=== PATIENT | female | born 1970 | race Caucasian/White ===

== ENCOUNTER → 2017-03-26 | Outpatient (CLI) | payer BC | END | disposition home or self-care (01) | LOC: RAH 07:48 | PROVIDERS: ATTEND Obstetrics & Gynecology | DX: N60.01 Solitary cyst of right breast (principal); N60.02 Solitary cyst of left breast; Z80.3 Family history of malignant neoplasm of breast | CPT/HCPCS: 76641; 77066 ==

== ENCOUNTER → 2017-05-27 | Outpatient (CLI) | payer BC | LOC: OIH 10:03 | PROVIDERS: ATTEND Internal Medicine | DX: I11.0 Hypertensive heart disease with heart failure (principal); I50.22 Chronic systolic (congestive) heart failure | CPT/HCPCS: 71046 ==

== ENCOUNTER → 2019-07-23 | Outpatient (CLI) | payer OTHER | END | disposition home or self-care (01) | LOC: RAH 11:21 | PROVIDERS: ATTEND Obstetrics & Gynecology | DX: Z12.31 Encounter for screening mammogram for malignant neoplasm of breast (principal) | CPT/HCPCS: 77067 ==

== ENCOUNTER → 2020-08-31 | Outpatient (CLI) | payer OTHER | END | disposition home or self-care (01) | LOC: RAH 08:07 | PROVIDERS: ATTEND Obstetrics & Gynecology | DX: Z12.31 Encounter for screening mammogram for malignant neoplasm of breast (principal) | CPT/HCPCS: 77067 ==

== ENCOUNTER → 2021-09-06 | Outpatient (CLI) | payer OTHER | END | disposition home or self-care (01) | LOC: RAH 07:43 | PROVIDERS: ATTEND Obstetrics & Gynecology | DX: Z12.31 Encounter for screening mammogram for malignant neoplasm of breast (principal) | CPT/HCPCS: 77067 ==

== ENCOUNTER → 2022-09-28 | Outpatient (CLI) | payer OTHER | END | disposition home or self-care (01) | LOC: RAH 08:42 | PROVIDERS: ATTEND Obstetrics & Gynecology | DX: Z12.31 Encounter for screening mammogram for malignant neoplasm of breast (principal) | CPT/HCPCS: 77067 ==

== ENCOUNTER → 2023-03-15 | Outpatient (CLI) | payer OTHER ==
[~2023-03-15] MED LIST: REGADENOSON 0.4 MG/5 ML PF SYG IVP ONE
== END | disposition home or self-care (01) ==
LOC: SHCH 08:20
PROVIDERS: ATTEND Internal Medicine Cardiovascular Disease
DX: I10 Essential (primary) hypertension (principal)
CPT/HCPCS: 78452; 96374; 93017; J2785; A9500 ×2

== ENCOUNTER → 2023-03-16 | Outpatient (CLI) | payer OTHER | END | disposition home or self-care (01) | LOC: SHCH 10:44 | PROVIDERS: ATTEND Internal Medicine Cardiovascular Disease | DX: I10 Essential (primary) hypertension (principal) | CPT/HCPCS: 93306 ==

== ENCOUNTER → 2023-10-02 | Outpatient (CLI) | payer OTHER | END | disposition home or self-care (01) | LOC: RAH 07:46 | PROVIDERS: ATTEND Family Medicine | DX: Z12.31 Encounter for screening mammogram for malignant neoplasm of breast (principal); R92.333 Mammographic heterogeneous density, bilateral breasts | CPT/HCPCS: 77067 ==

== ENCOUNTER → 2024-02-03 | Outpatient (CLI) | payer OTHER ==
--- NOTE | 2024-02-03 14:04 | HMCIMG ---
CT CORONARY CALCIFICATION SCORING: Anatomic images were reviewed. The calcium score is being generated and reported separately. This report is for the visualized anatomy only. Visualized portions of the lungs are clear. Hilar and mediastinal structures appear normal. Osseous structures are unremarkable. Impression: 1. Negative noncardiac anatomic findings. 2. The calcium score score is 62.6 consistent with a mild degree of calcified plaque. This is just over 90th percentile for this age patient. CT was performed with one or more following dose reduction techniques: automated exposure control, adjustment of the mA and kv according to patient's size, or use of a iterative reconstruction technique.
== END | disposition home or self-care (01) ==
LOC: RAH 12:26
PROVIDERS: ATTEND Internal Medicine Cardiovascular Disease
DX: Z13.6 Encounter for screening for cardiovascular disorders (principal); R07.9 Chest pain, unspecified
CPT/HCPCS: 75571

== ENCOUNTER 2025-02-13 16:16 | Emergency (ER) | payer OTHER ==
[~2025-02-13] VITALS: Ht 170.2 cm; Wt 135.2 kg
[2025-02-13 16:17] VITALS: TEMP 98.3
--- NOTE | 2025-02-13 17:18 | ERN ---
ED Note History of Present Illness Stated Complaint: LT ARM AND SHOULDER PAIN Chief Complaint: Shoulder Injury/Pain Time Seen by MD: 16:24 Dictation: This is a 54-year-old morbidly obese female who presented to the emergency room with her spouse with complaints of pain in her left flank area and then radiation to the neck shoulder and arm. Stated that she was at a restaurant sitting and eating when she felt a sudden sharp pain that started in the back and extended to the neck left shoulder area. History of any injury or falls. She has had a flu-like syndrome and bronchitis for which her primary care physician gave her a Z-Luke and steroids. Temperature 98.2 pulse 80 respirations 20 blood pressure 176/97 with a pulse oximetry of 99% on room air Her chronic problems include hypertension, hypercholesterolemia and morbid obesity Allergies: Coded Allergies: No Known Allergies (Unverified Allergy, Unknown, 02/13/25) Past Medical History Past Medical History: High Cholesterol, Hypertension Surgical History: Hysterectomy, Cholecystectomy Family History: Negative Social History: Negative History: Not Applicable RN Note Reviewed/Agreed w/PFSH: Yes Review of System Dictation Constitutional: Negative for fever,chills, and weight loss Eyes: Negative for injury, pain,redness, and discharge ENT: Negative for injury,pain or swelling Cardiovascular: Negative for chest pain, palpitations, and edema Respiratory: Negative for shortness of breath, cough, and wheezing, Abdomen/GI: Negative for abdominal pain, nausea, vomiting, diarrhea, and constipation Back: Negative for injury and pain : Negative for injury, bleeding and discharge MS/Extremity: Negative for injury and deformity positive for left shoulder pain, neck pain and back pain Skin: Negative for rash, and discoloration Neuro: Negative for headache, weakness, numbness, tingling, and seizure Psych: Negative for suicide ideation, homicidal ideation, and hallucinations Initial Vital Sign VS Vital Signs Date Time Temp Pulse Resp B/P (MAP) Pulse Ox O2 Delivery O2 Flow Rate FiO2 02/13/25 16:17 98.2 80 20 176/97 99 Room Air 02/13/25 17:30 0 21 Physical Exam Dictation General: awake, alert, NAD morbidly obese patient Head/Face: Normocephalic, atraumatic Eyes: PERRL, EOMI, vision at baseline ENT: oral cavity clear, TMs clear, no signs of infection Neck: Trachea midline, supple, no nuchal rigidity, soreness in the muscle in the neck shoulder and also the back and flank area. Cardiovascular: RRR, normal S1/S2, No MRGs, no JVD Respiratory: CTAB, no respiratory distress, No rales or wheezes Abdomen: Soft, non-tender, non-distended, normal bowel sounds, no guarding or rebound. Skin: Warm, dry, normal turgor, no rash MS/Extremity: Pulses equal, no cyanosis, neurovascular intact, FROM Neuro: COAx4, GCS 15, strength 5/5, CN 2-12 intact, normal cerebellar exam, normal gait, Psych: Normal behavior, mood, and affect normal Extremities-trace edema without any palpable cords, Homans sign is negative Results (Laboratory/Radiology) Labs Reviewed?: Yes ED Course ED Course Orders Procedure Category Date Status Time Shoulder Comp 2+Vws Lt RAD 02/13/25 Resulted 16:24 Ketorolac PHA 02/13/25 Complete Tromethamine 30mg/Ml 16:30 Orphenadrine Citrate PHA 02/13/25 Complete (Norflex) 18:00 Morphine 4mg Syg PHA 02/13/25 Complete (Morphine 4mg Syg) 18:00 Current Medications Medications (Trade) Dose Ordered Sig/Manuela Route PRN Reason Start Time Stop Time Status Last Admin Dose Admin Ketorolac Tromethamine (toRADol) 30 mg ONCE ONCE IM 02/13/25 16:30 02/13/25 16:31 DC 02/13/25 16:31 Morphine Sulfate (morPHINE 4MG SYG) 4 mg ONCE ONCE IM 02/13/25 18:00 02/13/25 18:01 DC 02/13/25 17:52 Orphenadrine Citrate (Norflex) 60 mg ONCE ONCE IM 02/13/25 18:00 02/13/25 18:01 DC 02/13/25 17:52 Vital Signs Date Time Temp Pulse Resp B/P (MAP) Pulse Ox O2 Delivery O2 Flow Rate FiO2 02/13/25 17:30 68 19 187/106 98 Room Air* 0 21 02/13/25 16:17 98.2 80 20 176/97 99 Room Air Medical Decision Making MDM Differential diagnosis: Supraspinatus tendinitis, bursitis, frozen shoulder, rotator cuff tear, brachial neuritis impingement syndrome muscle strain, fracture of the clavicle, SCJ injury, AC J injury cervical radiculopathy This is a 54-year-old morbidly obese female who presented to the emergency room with her spouse with complaints of pain in her left flank area and then radiation to the neck shoulder and arm. Stated that she was at a restaurant sitting and eating when she felt a sudden sharp pain that started in the back and extended to the neck left shoulder area. History of any injury or falls. She has had a flu-like syndrome and bronchitis for which her primary care physician gave her a Z-Luke and steroids. Temperature 98.2 pulse 80 respirations 20 blood pressure 176/97 with a pulse oximetry of 99% on room air Her chronic problems include hypertension, hypercholesterolemia and morbid obesity Left shoulder x-ray was essentially unremarkable Rationale: Tests considered and ordered secondary to shared decision making include: Shoulder x-ray Previous outside records reviewed: Old ER visits. Risk of complication and/or morbidity or mortality of patient management: None Medications-Per medication reconciliation Need for hospitalization: Patient does not meet criteria for hospitalization. Need for emergency major/minor surgery: No There are no social concerns with this patient. Prescription drug management Prescriptions will include symptomatic care Patient's prior external medical records from other ER visits were reviewed by me as indicated. Prior testing and results from previous visits were reviewed. Prior tests were taken into account with medical decision making and resource utilization, independent historian/historians were used to obtain complete medical history. I independently interpreted the test that were performed, results were reviewed by me and considered findings on radiology if ordered. Medical management and examination interpretation discussions were had by me with other qualified healthcare professionals as indicated for the patient's care. Problem List Problem List: (1) Musculoskeletal back pain (2) Musculoskeletal pain of left upper extremity (3) Cervical radiculopathy DX & DISP Disposition: Discharge Departure Impression: Primary Impression: Cervical radiculopathy Additional Impressions: Musculoskeletal back pain, Musculoskeletal pain of left upper extremity Condition: Stable Scripts Orphenadrine Citrate (Orphenadrine Citrate) 100 Mg Tablet.er 1 TAB PO [id number] PRN for pain for 10 Days, #20 TAB 0 Refills Prov: AYALA CRANE MD 02/13/25 Additional Instructions: Patient and the caregiver have been informed of all the diagnostic tests and the imaging conducted during the today's visit to the emergency room and has verbalized understanding of the results I have personally reviewed and interpreted all diagnostic exams performed here in the ER today as well as the vital signs documented by the nursing staff. The patient is now being discharged to home and should follow up with the primary care physician or the specialist as directed by the ER staff. 1 schedule a follow-up appointment; call your primary care physician's office on the next business day to set up a follow-up appointment. 2. Monitor symptoms; if your symptoms worsen return to the emergency room immediately. 3. Return to school/work; you may return to work or school in 2 days or as directed by your primary care physician. 4. Manage pain and fever; take [id number] Tylenol or Advil for pain or fever if there are no contraindications follow the recommended dosage instructions. 5. Stay well hydrated; drink plenty of oral fluids to stay hydrated. 6. Take prescribed medications; take any medications prescribed in the emergency room as directed bring them with you to your primary care physician visit for possible adjustments. 7. Complete medication course; finish the entire course of medication as prescribed even if you start feeling better. Do not have any leftover medication unless instructed otherwise. 8. Follow up on culture results; if a urine culture and wound culture was ordered in the emergency room please follow-up with your primary care physician within 2-3 days to review the culture and sensitivity report for appropriate antibiotic therapy adjustments. 9. Resume home medications; you may resume taking your home medications unless instructed otherwise. Referrals: EVY MONGE MD (PCP) AYALA CRANE MD Feb 13, 2025 17:17
--- NOTE | 2025-02-13 17:47 | HMCIMG ---
EXAM: Left shoulder radiograph 2 view HISTORY: Pain COMPARISON: None FINDINGS: No acute fracture or dislocation. Glenohumeral and acromioclavicular joints appear normal. Visualized lungs are clear. IMPRESSION: No abnormalities seen. /[place]
[2025-02-13] MEDS: ORPHENADRINE 60MG/2ML IM ONE (17:52)
[2025-02-13] MEDS ORDERED: ORPH100T4 PO (18:20)
[2025-02-13 18:27] VITALS: BP 151/84; PULSE 62; RESP 17; O2SAT 98
== END 2025-02-13 18:34 | disposition home or self-care (01) ==
LOC: EDH 16:16
DX: M54.12 Radiculopathy, cervical region (principal); M54.9 Dorsalgia, unspecified; M79.602 Pain in left arm; M25.512 Pain in left shoulder; Z90.49 Acquired absence of other specified parts of digestive tract; I10 Essential (primary) hypertension; E78.00 Pure hypercholesterolemia, unspecified; E66.01 Morbid (severe) obesity due to excess calories; Z90.710 Acquired absence of both cervix and uterus; R10.A2 Flank pain, left side
CPT/HCPCS: 99284; 73030; 96372 ×3; J1885 ×2; J2270; J2360